=== PATIENT | female | born 1980 | race African-American/Black ===

== ENCOUNTER → 2017-03-19 | Outpatient (CLI) | payer OTHER ==
[~2017-03-19] MED LIST: LORT5TAB PO; PREN0.01 PO
[2017-03-19 13:04] LABS: HEMATOCRIT 40.5 % (35.0-46.0); MEAN CORPUSCULAR HEMOGLOBIN 30.8 PG (27.0-34.0); MEAN CORPUSCULAR HGB CONC 33.4 % (32.0-36.0); PLATELET COUNT 293 TH/MM3 (150-450); RED CELL DISTRIBUTION WIDTH 13.5 % (11.6-17.2); REVIEW FLAG FINAL; WHITE BLOOD COUNT 4.5 TH/MM3 (4.0-11.0)
[2017-03-19 13:12] LABS: BLOOD, URINE SMALL (NEG); GLUCOSE,URINE NEG (NEG); KETONE, URINE NEG (NEG); NITRITE,URINE NEG (NEG); SQUAMOUS EPITHELIAL CELL URINE 2 /hpf (0-5); URINE COLOR YELLOW (YELLW/STRAW)
[2017-03-19 13:23] LABS: ANION GAP 4 MEQ/L (5-15); AST (GOT) 14 U/L (15-37); BICARBONATE 30.1 MEQ/L (21.0-32.0); BLOOD UREA NITROGEN 10 MG/DL (7-18); CHLORIDE 104 MEQ/L (98-107); GLOMERULAR FILTRATION RATE 102 ML/MIN (>89); GLUCOSE,FASTING 78 MG/DL (74-99); POTASSIUM 3.9 MEQ/L (3.5-5.1); SODIUM (NA) 138 MEQ/L (136-145)
[2017-03-19 13:32] LABS: ALKALINE PHOSPHATASE 64 U/L (45-117); ALT (GPT) 26 U/L (10-53); TOTAL BILIRUBIN ADULT 0.7 MG/DL (0.2-1.0)
[2017-03-19 13:33] LABS: BHCG SCREEN QUALITATIVE LESS THAN 1 MIU/ML (0-5)
== END ==
LOC: CPRE 12:32
PROVIDERS: ATTEND Obstetrics & Gynecology
DX: Z01.812 Encounter for preprocedural laboratory examination (principal); N94.10 Unspecified dyspareunia; T83.9XXD Unspecified complication of genitourinary prosthetic device, implant and graft, subsequent encounter; Z78.9 Other specified health status; X58.XXXD Exposure to other specified factors, subsequent encounter
CPT/HCPCS: 36415; 80053; 81001; 84703; 85027

== ENCOUNTER → 2017-03-20 | Day surgery (SDC) | payer OTHER ==
[~2017-03-20] VITALS: Ht 167.6 cm; Wt 73.6 kg
[~2017-03-20] MED LIST changes: +*morphine SULFATE 8 MG/ML PERIprocedure ONLY ONE; +ACETAMINOPHEN 1000 MG/100 ML 100 ML IV ONE; +CHLORHEXIDINE GLUCONATE 2 % 1 PACK (2 CLOTHS) TOPICAL PRN; +DEXAMETHASONE SOD PHOS 4 MG/ML VIAL IV ONE; +DO NOT ADM ANY ANTICOAGULANT DRUGS PRN; +FAMOTIDINE 20 MG/2 ML VIAL ONE; +GLYCOPYRROLATE 1 MG/5 ML SYRINGE IV PUSH ONE; +INSULIN HUMAN REGULAR 1,000 UNITS/10 ML VIAL SQ PRN; +KETOROLAC TROMETHAMINE 30 MG/ML (IVP) VIAL IV PUSH ONE; +LACTATED RINGER'S 1000 ML IV PRN; +LIDOCAINE HCL 1% PF 5 ML AMPULE OTHER ONE; -LORT5TAB PO; +METOPROLOL TARTRATE 25 MG TAB PO PRN; +MIDAZOLAM HCL 2 MG/2 ML VIAL ONE; +NEOSTIGMINE 3 MG/3 ML SYR IV ONE; +ONDANSETRON HCL 4 MG/2 ML VIAL IV PUSH ONE; +ONDANSETRON HCL 4 MG/2 ML VIAL IV PUSH PRN; +POVIDONE IODINE 5% (ANTISEPSIS KIT) 4 APPLICATIONS EACH NARE PRN; -PREN0.01 PO; +PROPOFOL 200 MG/20 ML AMP IV ONE; +ROCURONIUM INJ 50 MG/5 ML SYRINGE IV PUSH ONE; +SODIUM CHLORID 0.9% 500 ML IV PRN; +oxyCODONE/ACETAMINOPHEN 5 MG/325 MG TAB PO PRN
--- NOTE | 2017-03-20 13:48 | MP ---
cc: ZANDER FIELDS DATE OF SURGERY: 03/20/2017 PREOPERATIVE DIAGNOSIS 1. Lost IUD. 2. Dyspareunia. 3. Pelvic pain. 4. Desires permanent sterilization and removal of IUD. POSTOPERATIVE DIAGNOSIS 1. Lost IUD. 2. Dyspareunia. 3. Pelvic pain. 4. Desires permanent sterilization and removal of IUD. 5. Pelvic adhesions. 6. Pelvic congestion syndrome. PROCEDURE 1. Examination under anesthesia. 2. Dilation and curettage of the uterus. 3. Hysteroscopic exam. 4. Removal of IUD. 5. Laparoscopic exam with lysis of adhesions of omentum to the and anterior fundus of the uterus, bilateral salpingectomy. ANESTHESIA General endotracheal intubation SURGEON Saji Fields MD FINDINGS On emanation under anesthesia the vagina was clean, the cervix was parous without any lesions, the uterus was anteverted, anteflexed, freely mobile, the adnexa was negative for masses. The IUD removal was accomplished. It felt like it may have been embedded a little bit. Hysteroscopic exam revealed no bleeding or lesions of the endometrium from the IUD. There were no definite polyps or submucous myomas. The uterine cavity sounded to 9 cm. Laparoscopic exam revealed a normal uterus. There was a thick adhesion of the omentum to the anterior-superior fundus of the uterus which was taken down with the Harmonic scalpel. The fallopian tubes were normal in length and caliber and they were removed completely. The ovaries were normal bilaterally. The infundibulopelvic ligaments bilaterally had varicosities of the vessels as well as the uterine vessels seemed to be engorged. The posterior and anterior cul-de-sac were clean. There was no endometriosis or other significant pelvic pathology that would cause dyspareunia. The upper abdomen and GI tract were normal. COMPLICATIONS None. COUNTS Correct. ESTIMATED BLOOD LOSS 25 cc. FLUIDS Crystalloids. CONDITION The patient tolerated the procedure well and went to the recovery room in good condition. DETAILS OF PROCEDURE The patient was taken to the operating room, identified by name band and verbally. She was given a general anesthetic, carefully placed in the dorsal lithotomy position and prepped and draped in the usual sterile manner for a bilateral salpingectomy and removal of IUD with a D&C and hysteroscopic exam. The timeout was taken. The Perez catheter was inserted. An examination under anesthesia was carried out with the above findings. A weighted speculum was placed in the vagina. The anterior lip of the cervix was grasped with a single-tooth tenaculum. The cervix was serially dilated without difficulty. The hysteroscope was inserted after the IUD had been removed by gentle tugging of the IUD strings. The endometrium was carefully inspected for any signs of bleeding or where the IUD may have been embedded, however, I saw no definite signs of embedment in this case. At this point we removed the hysteroscope performed a quick D&C with a #1 sharp curette and put a Hulka clamp in. Attention was turned to the subumbilical area. A small subumbilical incision was made and with a 5 mm trocar pneumoperitoneum was created with 3 liters of CO2. The entire pelvis and abdomen were examined carefully with the above findings. Inferior lateral to the umbilicus bilaterally we transilluminated and placed two more 5 mm ports. Using the Harmonic scalpel starting at the fimbriated end of the left tube we took down the mesosalpinx without difficulty and removed the tube through the 5 mm trocar. This was repeated on the contralateral side. We removed the entire tube and fimbriated end without any difficulty. Hemostasis was excellent. We took a very close look at the pelvic congestion and it seemed to be moderate in amount on the infundibulopelvic ligaments and mild to moderate in the uterine vessels. We examined the adhesion to the superior portion of the uterus. There was no endometriosis or any reason for this but it was firmly adhesed to the uterus. We took this down with the Harmonic scalpel. Hemostasis was excellent. Everything looked fine. We completed the surgery at this time and we put about 30 cc of saline into the abdominal cavity. through a 5 mm port. We removed the laparoscope under direct vision without difficulty. The air was released through the second and third punctures. The skin was repaired then with a 4-0 Monocryl in subcuticular fashion. The patient tolerated the procedure well. She went to the recovery room in good condition. R. MD MARYAM Subramanian/SPENCER /1:01 PM /1:24 PM
[2017-03-20 15:50] VITALS: BP 103/67; PULSE 65; RESP 16; TEMP 97.7; O2SAT 97
== END | disposition home or self-care (01) ==
LOC: HSDC 09:23
PROVIDERS: ATTEND Obstetrics & Gynecology
DX: Z30.2 Encounter for sterilization (principal); N94.10 Unspecified dyspareunia; N73.6 Female pelvic peritoneal adhesions (postinfective); N94.89 Other specified conditions associated with female genital organs and menstrual cycle; Z30.432 Encounter for removal of intrauterine contraceptive device
CPT/HCPCS: 00840; 00940; 00952; 58301; 58558; 58661; 88302; 88305; J0131; J1100; J1885; J2250; J2270; J2405; J2710; J3010; J7120

== ENCOUNTER → 2017-06-27 | Outpatient (CLI) | payer OTHER ==
[2017-06-27 13:36] LABS: AUTOMATED NEUTROPHIL # 2.6 TH/MM3 (1.8-7.7); BASOPHIL % 0.9 % (0.0-2.0); EOSINOPHIL # 0.1 TH/MM3 (0-0.4); EOSINOPHIL % 1.5 % (0.0-4.0); HEMATOCRIT 38.4 % (35.0-46.0); HEMOGLOBIN 13.2 GM/DL (11.6-15.3); LYMPH % 42.7 % (9.0-44.0); LYMPHOCYTE # 2.3 TH/MM3 (1.0-4.8); MEAN CELL VOLUME 91.9 FL (80.0-100.0); MEAN CORPUSCULAR HEMOGLOBIN 31.5 PG (27.0-34.0); MEAN CORPUSCULAR HGB CONC 34.2 % (32.0-36.0); MEAN PLATELET VOLUME 8.2 FL (7.0-11.0); MONO % 6.2 % (0.0-8.0); MONOCYTE # 0.3 TH/MM3 (0-0.9); NEUT % 48.7 % (16.0-70.0); PLATELET COUNT 259 TH/MM3 (150-450); RED BLOOD COUNT 4.18 MIL/MM3 (4.00-5.30); RED CELL DISTRIBUTION WIDTH 12.9 % (11.6-17.2); WHITE BLOOD COUNT 5.3 TH/MM3 (4.0-11.0)
[2017-06-27 13:45] LABS: BILIRUBIN, URINE NEG (NEG); BLOOD, URINE NEG (NEG); GLUCOSE,URINE NEG (NEG); KETONE, URINE NEG (NEG); MUCUS URINE FEW /lpf (OCC); NITRITE,URINE NEG (NEG); SQUAMOUS EPITHELIAL CELL URINE 3 /hpf (0-5); URINE COLOR YELLOW (YELLW/STRAW); URINE LEUKOCYTE ESTERASE NEG (NEG)
[2017-06-27 13:58] LABS: ALBUMIN 3.8 GM/DL (3.4-5.0); ALT (GPT) 21 U/L (10-53); AST (GOT) 16 U/L (15-37); BICARBONATE 29.4 MEQ/L (21.0-32.0); BLOOD UREA NITROGEN 10 MG/DL (7-18); CALCIUM 8.9 MG/DL (8.5-10.1); CHLORIDE 106 MEQ/L (98-107); CREATININE 0.72 MG/DL (0.50-1.00); GLOMERULAR FILTRATION RATE 112 ML/MIN (>89); GLUCOSE,FASTING 87 MG/DL (74-99); SODIUM (NA) 141 MEQ/L (136-145)
[2017-06-27 14:01] LABS: ALKALINE PHOSPHATASE 62 U/L (45-117); TOTAL BILIRUBIN ADULT 0.2 MG/DL (0.2-1.0); TOTAL PROTEIN 7.8 GM/DL (6.4-8.2)
== END ==
LOC: CPRE 12:48
PROVIDERS: ATTEND Obstetrics & Gynecology
DX: Z01.812 Encounter for preprocedural laboratory examination (principal); N92.0 Excessive and frequent menstruation with regular cycle; N94.6 Dysmenorrhea, unspecified
CPT/HCPCS: 36415; 80053; 81001; 85025

== ENCOUNTER 2017-07-03 06:01 | Observation (INO) | payer OTHER ==
[~2017-07-03] VITALS: Ht 167.6 cm; Wt 74.6 kg
[2017-07-03] MEDS ORDERED: LACTATED RINGER'S 1000 ML IV PRN (06:45)
[2017-07-03] MEDS ORDERED: CHLORHEXIDINE GLUCONATE 2 % 1 PACK (2 CLOTHS) TOPICAL PRN (06:45)
[2017-07-03] MEDS ORDERED: SODIUM CHLORID 0.9% 500 ML IV PRN (06:45)
[2017-07-03] MEDS ORDERED: POVIDONE IODINE 5% (ANTISEPSIS KIT) 4 APPLICATIONS EACH NARE PRN (06:45)
[2017-07-03] MEDS ORDERED: ceFAZolin 1,000 MG/NS 100 ML IV SCH ×2 (06:45)
[2017-07-03] MEDS ORDERED: METOPROLOL TARTRATE 25 MG TAB PO PRN (06:45)
[2017-07-03] MEDS ORDERED: ESTROGENS CONJUGATED VAG CREA 15 APPL/30 GM TUBE ONE (07:05)
[2017-07-03] MEDS ORDERED: DO NOT ADM ANY ANTICOAGULANT DRUGS PRN (11:14)
[2017-07-03] MEDS ORDERED: MIDAZOLAM HCL 2 MG/2 ML VIAL ONE (11:25)
[2017-07-03] MEDS ORDERED: *morphine SULFATE 10 MG/ML PERIprocedure ONLY ONE ×3 (11:45→13:10)
[2017-07-03] MEDS ORDERED: ONDANSETRON HCL 4 MG/2 ML VIAL IV ONE (12:00)
[2017-07-03] MEDS ORDERED: LIDOCAINE HCL 1% PF 5 ML SYRINGE OTHER ONE (12:00)
[2017-07-03] MEDS ORDERED: DEXAMETHASONE SOD PHOS 4 MG/ML VIAL IV ONE (12:00)
[2017-07-03] MEDS ORDERED: GLYCOPYRROLATE 1 MG/5 ML SYRINGE IV PUSH ONE (12:00)
[2017-07-03] MEDS ORDERED: NEOSTIGMINE 5 MG/5 ML SYRINGE IV PUSH ONE (12:00)
[2017-07-03] MEDS ORDERED: PROPOFOL 200 MG/20 ML AMP IV ONE (12:00)
[2017-07-03] MEDS ORDERED: KETOROLAC TROMETHAMINE 30 MG/ML (IVP) VIAL IV PUSH ONE (12:00)
[2017-07-03] MEDS ORDERED: ROCURONIUM INJ 50 MG/5 ML SYRINGE IV PUSH ONE (12:00)
[2017-07-03] MEDS ORDERED: SODIUM CHLORIDE 0.9% FLUSH 10 ML FLUSH IV FLUSH PRN (12:15)
[2017-07-03] MEDS ORDERED: diphenhydrAMINE HCL 25 MG CAP PO PRN (12:15)
[2017-07-03] MEDS: DOCUSATE SODIUM 100 MG CAP PO SCH (12:30)
[2017-07-03] MEDS: LACTATED RINGER'S 1000 ML INJ 1,000 ML IV SCH ×2 (13:00→19:50)
[2017-07-03] MEDS ORDERED: *HYDROmorphone PF 1 MG VIAL PERIprocedural Use ONLY ONE ×2 (13:24→13:41)
[2017-07-03] MEDS ORDERED: ONDANSETRON HCL 4 MG/2 ML VIAL IVP PRN (14:15)
[2017-07-03] MEDS ORDERED: PROMETHAZINE INJ 25 MG/ML VIAL IM PRN (14:15)
[2017-07-03 14:20] VITALS: BP 97/60; PULSE 93; RESP 14; TEMP 97.5
[2017-07-03] MEDS: IBUPROFEN 600 MG TAB PO SCH ×2 (17:55→19:50)
[2017-07-03] MEDS: ACETAMINOPHEN/HYDROcodone 325 MG/7.5 MG TAB PO PRN (17:55)
[2017-07-03] MEDS ORDERED: MORPHINE SULFATE 4 MG/ML INJ IV PUSH ONE (19:45)
[2017-07-03 20:00] VITALS: BP 97/67; PULSE 78; RESP 16; TEMP 97.9; O2SAT 99
[2017-07-03] MEDS ORDERED: ZOLPIDEM TARTRATE 5 MG TAB PO PRN (21:00)
[2017-07-03] MEDS ORDERED: SODIUM CHLORIDE 0.9% FLUSH 10 ML FLUSH IV FLUSH SCH (21:00)
[2017-07-04] VITALS: BP 100/70; PULSE 72; RESP 18; TEMP 98; O2SAT 100
[2017-07-04] MEDS: DOCUSATE SODIUM 100 MG CAP PO SCH (00:05)
[2017-07-04] MEDS: IBUPROFEN 600 MG TAB PO SCH ×2 (00:06→05:25)
[2017-07-04] MEDS: LACTATED RINGER'S 1000 ML INJ 1,000 ML IV SCH (00:06)
[2017-07-04] MEDS: ACETAMINOPHEN/HYDROcodone 325 MG/7.5 MG TAB PO PRN ×3 (01:18→10:53)
[2017-07-04 05:00] VITALS: BP 96/69; PULSE 68; RESP 16; TEMP 98.6
[2017-07-04 06:01] LABS: AUTOMATED NEUTROPHIL # 6.6 TH/MM3 (1.8-7.7); BASOPHIL % 0.3 % (0.0-2.0); EOSINOPHIL % 0.2 % (0.0-4.0); HEMATOCRIT 32.6 % (35.0-46.0); HEMOGLOBIN 10.9 GM/DL (11.6-15.3); LYMPH % 23.5 % (9.0-44.0); LYMPHOCYTE # 2.3 TH/MM3 (1.0-4.8); MEAN CELL VOLUME 92.2 FL (80.0-100.0); MEAN CORPUSCULAR HEMOGLOBIN 30.9 PG (27.0-34.0); MEAN CORPUSCULAR HGB CONC 33.5 % (32.0-36.0); MEAN PLATELET VOLUME 8.3 FL (7.0-11.0); MONO % 7.8 % (0.0-8.0); MONOCYTE # 0.8 TH/MM3 (0-0.9); NEUT % 68.2 % (16.0-70.0); PLATELET COUNT 217 TH/MM3 (150-450); RED BLOOD COUNT 3.54 MIL/MM3 (4.00-5.30); RED CELL DISTRIBUTION WIDTH 12.9 % (11.6-17.2); WHITE BLOOD COUNT 9.7 TH/MM3 (4.0-11.0)
[2017-07-04 06:25] LABS: BICARBONATE 27.7 MEQ/L (21.0-32.0); CALCIUM 8.1 MG/DL (8.5-10.1); CREATININE 0.66 MG/DL (0.50-1.00)
[2017-07-04 08:00] VITALS: BP 101/63; PULSE 73; RESP 16; TEMP 98.5
[2017-07-04 12:00] VITALS: BP 109/66; PULSE 77; RESP 16; TEMP 98.6
--- NOTE | 2017-07-04 13:22 | HHI.PR ---
Subjective Remarks Doing well, pain is well controlled, eating well. Objective Vital Signs Vital Signs Date Time Temp Pulse Resp B/P (MAP) Pulse Ox O2 Delivery O2 Flow Rate FiO2 07/04/17 12:00 98.6 77 16 109/66 (80) 07/04/17 08:00 98.5 73 16 101/63 (76) 07/04/17 05:00 98.6 68 16 96/69 (78) 07/04/17 00:00 98.0 72 18 100/70 (80) 100 07/03/17 20:00 97.9 78 16 97/67 (77) 99 07/03/17 14:20 97.5 93 14 97/60 (72) 07/03/17 14:00 98.0 106 16 112/71 (85) 95 Room Air 07/03/17 13:30 106 16 112/71 (85) 95 Room Air I/O 07/03/17 07/03/17 07/03/17 07/04/17 07/04/17 07/04/17 07:00 15:00 23:00 07:00 15:00 23:00 Intake Total 1275 ml 1040 ml 890 ml Output Total 6650 ml 300 ml 350 ml Balance -5375 ml 740 ml 540 ml Intake Oral 240 ml 240 ml IV Total 175 ml 800 ml 650 ml Other 1100 ml Output Urine Total 550 ml 300 ml 350 ml Estimated Blood Loss 100 ml Other 6000 ml # Voids 1 Result Diagram: 07/04/17 0459 07/04/17 0459 Objective Remarks Chest is clear, regular rate and rhythm. Abdomen is soft and non-distended. Incision is clean and dry. Ext no CCE. A/P Assessment and Plan Post Op Day 1 Doing well Home today and return to office in two weeks. Saji Fields MD Jul 04, 2017 13:22
--- NOTE | 2017-07-04 13:30 | HHI.DCPOC ---
Discharge Care Plan Diagnosis: (1) H/O hysterectomy for benign disease (2) Menorrhagia (3) Dysmenorrhea Report Symptoms to Your Doctor -Temperature above 100.5 degrees -Redness, of incision or excessive or foul smelling drainage -Unusual pain or calf pain -Increased vaginal bleeding -Painful or difficulty urinating -Feelings of extreme sadness or anxiety after 2 weeks Goals to Promote Your Health * To prevent worsening of your condition and complications * To maintain your health at the optimal level Directions to Meet Your Goals Take your medications as prescribed Follow your dietary instruction Follow activity as directed Ensure plenty of rest for recovery Drink fluids for hydration Keep your appointments as scheduled Take your immunizations and boosters as scheduled If your symptoms worsen call your PCP, if no PCP go to Urgent Care Center or Emergency Room Smoking is Dangerous to Your Health. Avoid second hand smoke Call the 24-hour crisis hotline for domestic abuse at Saji Fields MD Jul 04, 2017 13:30
--- NOTE | 2017-07-05 10:51 | MP ---
cc: ZANDER FIELDS DATE OF SURGERY 07/03/2017 PREOPERATIVE DIAGNOSIS 1. Menorrhagia. 2. Severe dysmenorrhea. POSTOPERATIVE DIAGNOSIS 1. Menorrhagia. 2. Severe dysmenorrhea. 3. Low-hanging ovaries. PROCEDURE 1. Laparoscopic-assisted vaginal hysterectomy. 2. Suspension of ovaries bilaterally. ANESTHESIA General endotracheal intubation. SURGEON Saji Fields M.D. FINDINGS On examination under anesthesia the cervix was clean without lesions, parous. The uterus was normal size, shape and consistency and freely mobile. The adnexa was negative for masses. The laparoscopic exam revealed a normal size uterus, normal tubes, normal ovaries. The ovaries were very low in the posterior cul-de-sac, especially after the uterus was removed. COMPLICATIONS None. COUNTS Correct. ESTIMATED BLOOD LOSS 100 cc. FLUIDS Crystalloids. CONDITION The patient tolerated the procedure well and went to the recovery room in good condition. PROCEDURE IN DETAIL The patient was taken to the operating room, identified by name band and verbally. She was given a general anesthetic, placed in dorsal lithotomy position, prepped and draped in the usual sterile fashion for a laparoscopic-assisted vaginal hysterectomy. The timeout was taken and examination under anesthesia was carried out with the above findings. A weighted speculum was placed in the vagina. The anterior lip of the cervix was grasped with a single-tooth tenaculum. The cervix was serially dilated and a VCare device was placed for uterine manipulation without difficulty. At this point we changed our gloves and went to the abdomen. A small subumbilical incision was made and a 5 mm trocar was placed into the abdomen and the pneumoperitoneum was created with three liters of CO2. Her fallopian tubes had previously been removed so we started taking down the round ligaments bilaterally condition and created a bladder flap. We started taking the broad ligament down to the level of the internal cervical os with the Harmonic scalpel. We took the uterine vessels bilaterally with the CELESTE Harmonic scalpel and then began taking down the cardinal ligament slowly after the bladder had been taken and pushed well out of harm's way. At this point we saw the VCare device and we skeletonized the tissue around the VCare device. Then using the Harmonic scalpel we made a circumferential incision around the vagina and then went below and pulled the uterus and cervix out through the vagina without difficulty. The vaginal cuff was then repaired with 0 Vicryl pop-offs in an interrupted fashion with excellent results. At this point we went back above and with the laparoscope we noticed that the ovaries were very low-hanging bilaterally. This would surely cause dyspareunia in the future and although it extended the time that we needed to continue the surgery felt this was medically necessary to prevent further surgery. Using 2-0 Vicryl cirilo suture we lifted the ovaries to the pelvic sidewall bilaterally with several stitches of this and she tolerated this well. At this point we irrigated with a large amount of fluids until everything looked clear. We inspected all surgical sites and they were all clean. We removed the laparoscope under direct vision and released the air through the second and third punctures without difficulty and the skin incision was repaired with 4-0 Vicryl in a subcuticular manner. She tolerated the procedure well and went to the recovery room in good condition. R. MD MARYAM Subramanian/SPENCER /1:12 PM /10:32 AM
== END 2017-07-04 14:27 | disposition home or self-care (01) ==
LOC: HSDC 06:01 → HSDI 11:06 → H1EA 14:25
PROVIDERS: ADMIT Obstetrics & Gynecology; ATTEND Obstetrics & Gynecology
DX: N94.6 Dysmenorrhea, unspecified (principal); N92.0 Excessive and frequent menstruation with regular cycle; N83.9 Noninflammatory disorder of ovary, fallopian tube and broad ligament, unspecified; N88.8 Other specified noninflammatory disorders of cervix uteri; N80.0 Endometriosis of uterus; N72 Inflammatory disease of cervix uteri
CPT/HCPCS: 00840; 00940; 58550; 58999; 80048; 85025; 88307; 96361; 96374; G0378; J0690; J1100; J1170; J1885; J2250; J2270; J2405; J2710; J3010; J7120